=== PATIENT | male | born 1935 | race Caucasian/White ===

== ENCOUNTER 2020-03-15 17:01 | Emergency (ER) | payer MEDICARE, MEDICAID | END 2020-03-15 21:45 | disposition home or self-care (01) | LOC: ED 17:01 | DX: J02.9 Acute pharyngitis, unspecified (principal); B34.9 Viral infection, unspecified; K21.9 Gastro-esophageal reflux disease without esophagitis; I10 Essential (primary) hypertension; Z88.8 Allergy status to other drugs, medicaments and biological substances; Z79.899 Other long term (current) drug therapy ==